=== PATIENT | female | born 1985 | race Caucasian/White ===

== ENCOUNTER 2021-05-21 05:50 | Day surgery (SDC) | payer MEDICAID, SELFPAY ==
[~2021-05-21] VITALS: Ht 157.5 cm; Wt 83.5 kg
[2021-05-21 06:39] LABS: HCG,QUAL RESULT NEGATIVE (NEGATIVE)
[2021-05-21] MEDS ORDERED: LR 1,000 ML IV SCH (08:00)
[2021-05-21] MEDS ORDERED: MEPERIDINE HCL/PF 25 MG/ML DISP.SYRIN IVP PRN (08:00)
[2021-05-21] MEDS ORDERED: HYDROmorphone 2 MG/ML VIAL IVP PRN ×2 (08:00)
[2021-05-21] MEDS ORDERED: HYDROmorphone 1 MG/ML INJ. CARTRIDGE IVP PRN (08:00)
[2021-05-21] MEDS ORDERED: LR 1,000 ML IV.SOLN IV ONE (08:57)
[2021-05-21] MEDS ORDERED: SEVOFLURANE 15 MIN GAS INH ONE (08:57)
[2021-05-21] MEDS ORDERED: NS IRRIG SOLN 1000 ML IR ONE (08:57)
[2021-05-21] MEDS ORDERED: ONDANSETRON HCL 4 MG/2 ML VIAL IVP ONE (08:57)
[2021-05-21] MEDS ORDERED: MIDAZOLAM HCL 5 MG/5 ML VIAL IVP ONE (08:57)
[2021-05-21] MEDS ORDERED: SUGAMMADEX SODIUM 200 MG/2 ML VIAL IV ONE (08:57)
[2021-05-21] MEDS ORDERED: fentaNYL CITRATE/PF 100 MCG/2 ML AMP IVP ONE (08:57)
[2021-05-21] MEDS ORDERED: NS 1000 ML IV.SOLN IV ONE (08:57)
[2021-05-21] MEDS ORDERED: ROCURONIUM BROMIDE 10 MG/ML (ZEMURON) IV ONE (08:57)
[2021-05-21] MEDS ORDERED: METOCLOPRAMIDE HCL 10 MG/2 ML VIAL IVP ONE (08:57)
[2021-05-21] MEDS ORDERED: PROPOFOL 200MG/ 20ML VIAL (DIPRIVAN) IV ONE (08:57)
[2021-05-21] MEDS ORDERED: DEXAMETHASONE SOD PHOSPHATE 4 MG/ML VIAL IVP ONE (08:57)
[2021-05-21] MEDS ORDERED: ACETAMINOPHEN I.V. 1000 MG 100 ML IV ONE (09:33)
[2021-05-21 12:15] VITALS: BP_SYST 118
== END 2021-05-21 11:45 | disposition home or self-care (01) ==
LOC: SDS 05:50 → SMU 05:55 → SDS 11:45
PROVIDERS: ATTEND Obstetrics & Gynecology
DX: Z30.2 Encounter for sterilization (principal); F32.9 Major depressive disorder, single episode, unspecified; Z79.899 Other long term (current) drug therapy
CPT/HCPCS: 36415; 58661; 84703; 86886; 86900; 86901; C9399; J0131; J1100; J2250; J2405; J2704; J2765; J3010; J7030; J7120

== ENCOUNTER 2022-09-03 08:20 | Day surgery (SDC) | payer MEDICAID ==
[~2022-09-03] VITALS: Ht 157.5 cm; Wt 87.1 kg
[2022-09-03 09:16] LABS: HCG,QUAL RESULT NEGATIVE (NEGATIVE)
[2022-09-03] MEDS ORDERED: NS IRRIG SOLN 1000 ML IR ONE (11:17)
[2022-09-03] MEDS ORDERED: LIDOCAINE 2%, 20 ML MDV INJ ONE (11:17)
[2022-09-03] MEDS ORDERED: DESFLURANE 15 MIN GAS INH ONE (11:17)
[2022-09-03] MEDS ORDERED: NS 1000 ML IV.SOLN IV ONE (11:17)
[2022-09-03] MEDS ORDERED: ONDANSETRON HCL 4 MG/2 ML VIAL IVP ONE (11:17)
[2022-09-03] MEDS ORDERED: PROPOFOL 200MG/ 20ML VIAL (DIPRIVAN) IV ONE (11:17)
[2022-09-03] MEDS ORDERED: DEXAMETHASONE SOD PHOSPHATE 4 MG/ML VIAL IVP ONE (11:17)
[2022-09-03] MEDS ORDERED: MIDAZOLAM HCL 5 MG/5 ML VIAL IVP ONE (11:17)
[2022-09-03] MEDS ORDERED: LR 1,000 ML IV.SOLN IV ONE (11:17)
[2022-09-03] MEDS ORDERED: SUGAMMADEX SODIUM 200 MG/2 ML VIAL IV ONE (11:17)
[2022-09-03] MEDS ORDERED: ROCURONIUM BROMIDE 10 MG/ML (ZEMURON) IV ONE (11:17)
[2022-09-03] MEDS ORDERED: LIDOCAINE/EPI 1% 1:100000 20 ML VIAL INJ ONE (11:17)
[2022-09-03] MEDS ORDERED: OXYMETAZOLINE HCL 0.05% NASAL SPRAY NS ONE (11:17)
[2022-09-03] MEDS ORDERED: fentaNYL CITRATE 250 MCG/5 ML AMP IV ONE (11:17)
[2022-09-03] MEDS ORDERED: ACETAMINOPHEN I.V. 1000 MG 100 ML IV ONE (11:51)
[2022-09-03] MEDS ORDERED: hydrALAZINE HCL 20 MG/ML VIAL IVP PRN (12:00)
[2022-09-03] MEDS ORDERED: MEPERIDINE HCL/PF 25 MG/ML DISP.SYRIN IVP PRN (12:00)
[2022-09-03] MEDS ORDERED: LR 1,000 ML IV SCH (12:00)
[2022-09-03] MEDS ORDERED: LABETALOL 100 MG/ 20ML VIAL IVP PRN (12:00)
[2022-09-03] MEDS ORDERED: METOCLOPRAMIDE HCL 10 MG/2 ML VIAL IVP PRN (12:00)
[2022-09-03] MEDS ORDERED: HYDROmorphone 1 MG/ML INJ. CARTRIDGE IVP PRN ×2 (12:00)
[2022-09-03] MEDS ORDERED: HYDROmorphone 1 MG/ML INJ. CARTRIDGE ONE (14:46)
[2022-09-03 16:06] VITALS: BP_SYST 132
== END 2022-09-03 15:39 | disposition home or self-care (01) ==
LOC: SDS 08:20
PROVIDERS: ATTEND Otolaryngology
DX: J34.89 Other specified disorders of nose and nasal sinuses (principal); D38.5 Neoplasm of uncertain behavior of other respiratory organs; J34.2 Deviated nasal septum; J30.1 Allergic rhinitis due to pollen; J32.9 Chronic sinusitis, unspecified; Z79.899 Other long term (current) drug therapy; Z20.822 Contact with and (suspected) exposure to COVID-19
CPT/HCPCS: 30520; 84703; 36415; 88304; 88311; 87426; 30140; 31240; J3490; J1100; J2001; J2250; J2405; J2704; J3010; J1170; J7120; J7030; J0131; 88305